=== PATIENT | female | born 1950 | race Caucasian/White ===

== ENCOUNTER 2024-01-25 09:57 | Outpatient (AMB) | payer OTHER, SELFPAY ==
[2024-01-25 10:10] VITALS: BP 150/79; PULSE 72; RESP 18; TEMP 36.8; O2SAT 97; BMI 32.5
--- NOTE | 2024-01-25 10:10 | PD.ORTHCLVIS ---
Vital signs 01/25/24 10:10 Height 1.6 m Height Method Stated Weight 83.206 kg Weight Measurement Method Standing Scale BMI 32.5 BP 150/79 H Blood Pressure Source Automatic Cuff Blood Pressure Location Right Upper Arm Position Sitting Respiration 18 Pulse 72 Pulse Source Monitor Temp 98.3 F Temp Source Oral Pulse Oximetry (%) 97 Oxygen Delivery Method Room Air Med/Allergies Allergies & Medications Allergies NKA Allergy (Unknown, Uncoded 01/25/24 10:14) Medication Reconciliation turmeric 400 mg capsule 400 mg PO DAILY 11/17/23 [History Confirmed 01/25/24] cholecalciferol (vitamin D3) 125 mcg (5,000 unit) tablet (Vitamin D3) 125 mcg PO QDAY 01/09/24 [History Confirmed 01/25/24] multivitamin 1 tab PO QAM 01/09/24 [History Confirmed 01/25/24] acetaminophen 500 mg tablet (Acetaminophen Extra Strength) 1,000 mg (2 x 500 mg) PO Q6H PRN pain #90 tabs 01/10/24 [Rx Confirmed 01/25/24] aspirin 81 mg tablet,delayed release 81 mg PO BID #60 tabs 01/10/24 [Rx Confirmed 01/25/24] doxycycline hyclate 100 mg tablet 100 mg PO BID #14 tabs 01/10/24 [Rx Confirmed 01/25/24] gabapentin 300 mg capsule 300 mg PO .qhs #30 caps 01/10/24 [Rx Confirmed 01/25/24] sennosides 8.6 mg-docusate sodium 50 mg tablet (Senna-S) 1 tab-cap PO QDAY #30 tabs 01/10/24 [Rx Confirmed 01/25/24] oxycodone 5 mg tablet 5 mg PO Q6H PRN pain #28 tabs 01/25/24 [Rx] Subjective Visit Visit for: follow up visit, post op #1 and x-rays Immunization / Flu Flu Vaccine in the Last 12 Months: Yes Flu Vaccine Exclusion Criteria: Already Received History of Present Illness Chief complaint: 2 WEEK POST OP FOLLOW UP RIGHT TKA She is doing well 2 weeks status post right total knee replacement. She is using a walker and is sometimes walking without it. She is doing home physical therapy Personal History Red flag PMH: none Pain Pain level (0-10): 0 Pain timing: night Associated signs & symptoms: weakness (ANKLE) Ambulatory data Ambulatory device: walker Treatments Improvement with NSAIDS: yes Review of Systems Review of Systems: All systems negative unless otherwise noted in HPI. Exam Exam Patient is in no acute distress and is cooperative with the examination today. Breathing is nonlabored. Patient has a normal mood and affect. Bilateral extremities were evaluated and demonstrates sensation intact to light touch. Palpable pedal pulses are present. No significant edema is present. Bilateral hips were examined. The patient has no pain with log roll of the hips. Internal rotation to 30 degrees and external rotation to 30 degrees is painless. Negative FADIR. Left knee was examined today. The left knee is in reasonable alignment. Range of motion from 0-120 degrees. Knee is stable to varus and valgus as well as AP translation with <5mm. Patient has a negative McMurrays. There is no pain with patellofemoral compression and no crepitus noted. The knee is nontender to palpation. Right knee incision is clean dry and intact Assessment and Plan Problem List (1) Arthritis of right knee: Status: Acute Plan: The patient is a pleasant 73-year-old female with right knee pain and right knee arthritis that is affecting her quality of life. Patient is doing well status post right total knee replacement Advanced Care Planning Discussion Advance care planning discussed with:: patient Office Procedures GNS Level of Care Nursing/Assessment Patient Status: Established Patient Nursing Assessment/Reassesment: Medication Reconciliation, Update PMH in EMR and Vital Signs Coordination of Care: Complex Care/Chronic Disease 5 or more, Education Complex Pt/Fam, Consent,records obtained, informed consent, Results/Orders obtained and Staff clarify orders Established Patient Charge Established Patient Point Assignment: 105 Established Patient Point Charge: EP Level 3 (80-115) Past Medical History Past Medical History Have you ever been diagnosed with any of the following: Neurological Problems Seizures: No Cardiology Problems Congestive Heart Failure: No Respiratory Problems Chronic Obstructive Pulmonary Disease (COPD): No Smoking: No Smoking Exposure: No Stomache/Intestinal Problems Hepatitis: No Hemorrhoids: Yes Genital/Urinary Problems Renal Disease: No Reproductive Problems Previous Pregnancies: Yes Musculoskeletal Problems Arthritis: Yes Head,Eye,Nose,Throat Problems Cataracts: Yes Endocrine Problems Diabetes Mellitus Type 1: No Diabetes Mellitus Type 2: No Blood Problems Anemia: Yes Other Problems Hospitalization: Yes (surgery) Shingles: No Blood Transfusions: No Blood Transfusion Reaction: No Anesthesia Reactions: No Chicken Pox: Yes Measles: Yes Mumps: Yes Cancer: No Surgical History Total Knee Replacement: Yes (LEFT)
== END 2024-01-25 10:34 | disposition home or self-care (01) ==
LOC: HODSRG 09:57
PROVIDERS: PCP Internal Medicine; Referring Provider Internal Medicine; Supervising Provider Orthopaedic Surgery Adult Reconstructive Orthopaedic Surgery; Visit Provider Orthopaedic Surgery Adult Reconstructive Orthopaedic Surgery
DX: M17.11 Unilateral primary osteoarthritis, right knee (principal); M25.561 Pain in right knee; Z96.651 Presence of right artificial knee joint
CPT/HCPCS: 99213; G0463

== ENCOUNTER → 2024-03-28 | Outpatient (CLI) | payer OTHER, SELFPAY ==
--- NOTE | 2024-03-28 10:00 | XR_ITS ---
Examination: Bilateral knees 2 views Right lateral knee left lateral knee 2 views Bilateral axial knees single view TECHNIQUE: Bilateral AP knees standing single view, bilateral PA knees standing single view 30 degrees flexion Staining right lateral knee left lateral knee 2 views Bilateral axial knees single view Exam date and time: March 28, 2024 1018 hours INDICATIONS: Right knee pain beginning yesterday, right knee surgery January 2024 left knee surgery 2 years ago FINDINGS: Moderate osteopenia Bilateral total knee arthroplasties. Anatomic alignment No loosening of the prosthetic components No fractures IMPRESSION: Bilateral total knee arthroplasties, anatomic alignment
== END | disposition home or self-care (01) ==
PROVIDERS: PCP Internal Medicine; Referring Provider Orthopaedic Surgery Adult Reconstructive Orthopaedic Surgery; Visit Provider Orthopaedic Surgery Adult Reconstructive Orthopaedic Surgery
DX: M25.561 Pain in right knee (principal); M25.562 Pain in left knee; Z96.651 Presence of right artificial knee joint
CPT/HCPCS: 73564

== ENCOUNTER 2024-03-29 12:54 | Outpatient (AMB) | payer OTHER, SELFPAY ==
[2024-03-29 13:02] VITALS: BP 138/72; PULSE 66; RESP 18; TEMP 36.1; O2SAT 97; BMI 32.9
--- NOTE | 2024-03-29 13:02 | PD.ORTHCLVIS ---
Vital signs 03/29/24 13:02 Height 1.6 m Height Method Stated Weight 84.397 kg Weight Measurement Method Standing Scale BMI 32.9 BP 138/72 H Blood Pressure Source Automatic Cuff Blood Pressure Location Right Upper Arm Position Sitting Respiration 18 Pulse 66 Pulse Source Monitor Temp 97 F Temp Source Temporal Artery Scan Pulse Oximetry (%) 97 Oxygen Delivery Method Room Air Med/Allergies Allergies & Medications Allergies NKA Allergy (Unknown, Uncoded 03/29/24 13:03) Medication Reconciliation turmeric 400 mg capsule 400 mg PO DAILY 11/17/23 [History Confirmed 03/29/24] cholecalciferol (vitamin D3) 125 mcg (5,000 unit) tablet (Vitamin D3) 125 mcg PO QDAY 01/09/24 [History Confirmed 03/29/24] multivitamin 1 tab PO QAM 01/09/24 [History Confirmed 03/29/24] acetaminophen 500 mg tablet (Acetaminophen Extra Strength) 1,000 mg (2 x 500 mg) PO Q6H PRN pain #90 tabs 01/10/24 [Rx Confirmed 03/29/24] aspirin 81 mg tablet,delayed release 81 mg PO BID #60 tabs 01/10/24 [Rx Confirmed 03/29/24] doxycycline hyclate 100 mg tablet 100 mg PO BID #14 tabs 01/10/24 [Rx Confirmed 03/29/24] gabapentin 300 mg capsule 300 mg PO .qhs #30 caps 01/10/24 [Rx Confirmed 03/29/24] sennosides 8.6 mg-docusate sodium 50 mg tablet (Senna-S) 1 tab-cap PO QDAY #30 tabs 01/10/24 [Rx Confirmed 03/29/24] oxycodone 5 mg tablet 5 mg PO Q6H PRN pain #28 tabs 01/25/24 [Rx Confirmed 03/29/24] diclofenac sodium 1 % topical gel (Arthritis Pain (diclofenac)) 4 g topical QID #100 grams 03/29/24 [Rx] Exam Exam Patient is in no acute distress and is cooperative with the examination today. Breathing is nonlabored. Patient has a normal mood and affect. Bilateral extremities were evaluated and demonstrates sensation intact to light touch. Palpable pedal pulses are present. No significant edema is present. Bilateral hips were examined. The patient has no pain with log roll of the hips. Internal rotation to 30 degrees and external rotation to 30 degrees is painless. Negative FADIR. Right knee incision is clean dry and intact Assessment and Plan Problem List (1) Arthritis of right knee: Status: Acute Plan: The patient is a pleasant 73-year-old female with right knee pain and right knee arthritis that is affecting her quality of life. Patient is doing well status post right total knee replacement Advanced Care Planning Discussion Advance care planning discussed with:: patient Office Procedures GNS Level of Care Nursing/Assessment Patient Status: Established Patient Nursing Assessment/Reassesment: Medication Reconciliation, Update PMH in EMR and Vital Signs Coordination of Care: Complex Care and Chronic Disease 1-5, Education Complex Pt/Fam, Consent,records obtained, informed consent, Results/Orders obtained and Staff clarify orders Established Patient Charge Established Patient Point Assignment: 95 Established Patient Point Charge: EP Level 3 (80-115) MA Intake Visit Data Collection New Patient or Established: Established Patient (seen at [facility] within 3 years) Reason for Visit:: f/u knee pain Seen by Clinical Staff ONLY (RN/MA): No Verbal consent obtained for Telemed visit?: No Top Dyeing Machine Tender Required: No PCP or OBGYN visit in last 3 months: Yes Hx Now: No Do You Feel Safe at Home: Yes Authorities Contacted: N/A Questionairres Past Medical History Past Medical History Have you ever been diagnosed with any of the following: Neurological Problems Seizures: No Cardiology Problems Congestive Heart Failure: No Respiratory Problems Chronic Obstructive Pulmonary Disease (COPD): No Smoking: No Smoking Exposure: No Stomache/Intestinal Problems Hepatitis: No Hemorrhoids: Yes Genital/Urinary Problems Renal Disease: No Reproductive Problems Previous Pregnancies: Yes Musculoskeletal Problems Arthritis: Yes Head,Eye,Nose,Throat Problems Cataracts: Yes Endocrine Problems Diabetes Mellitus Type 1: No Diabetes Mellitus Type 2: No Blood Problems Anemia: Yes Other Problems Hospitalization: Yes (surgery) Shingles: No Blood Transfusions: No Blood Transfusion Reaction: No Anesthesia Reactions: No Chicken Pox: Yes Measles: Yes Mumps: Yes Cancer: No Surgical History Total Knee Replacement: Yes (LEFT) Subjective Visit Visit for: follow up visit and knee Immunization / Flu Flu Vaccine in the Last 12 Months: Yes Flu Vaccine Exclusion Criteria: Already Received History of Present Illness Chief complaint: F/u knee pain patient is a 74-year-old female status post right total knee replacement. She has minimal pain. She reports she had 2 instances where she had pain inside her knee that radiated down her foot. It has largely resolved Personal History Occupation: retired Red flag PMH: none Pain Pain level (0-10): 0 Pain location: inside (medial) Ambulatory data Ambulatory device: none Treatments Improvement with previous injections: No Improvement with PT: No Improvement with NSAIDS: n/a Review of Systems Review of Systems: All systems negative unless otherwise noted in HPI.
== END 2024-03-29 13:07 | disposition home or self-care (01) ==
LOC: HODSRG 12:54
PROVIDERS: PCP Internal Medicine; Referring Provider Internal Medicine; Supervising Provider Orthopaedic Surgery Adult Reconstructive Orthopaedic Surgery; Visit Provider Orthopaedic Surgery Adult Reconstructive Orthopaedic Surgery
DX: M17.11 Unilateral primary osteoarthritis, right knee (principal); M25.561 Pain in right knee; Z96.651 Presence of right artificial knee joint
CPT/HCPCS: 99213; G0463